=== PATIENT | female | born 1995 | race Caucasian/White ===

== ENCOUNTER 2019-01-07 13:58 | Inpatient (IN) | payer OTHER ==
[2019-01-07 14:40] VITALS: BMI 26.3
--- NOTE | 2019-01-07 14:56 | HP ---
COWS - Scale Resting Pulse: 0= [place] 80 or Below Sweatin=Flushed/Facial Moisture Restless Observation: 1= Difficult to Sit Still Pupil Size: 0= Normal to Room Light Bone or Joint Aches: 2= Severe Diffuse Aches Runny Nose/ Eye Tearin= Runny Nose/Eyes GI Upset > 30mins: 2= Nausea/Diarrhea Tremor Observation: 2= Slight Tremor Visible Yawning Observation: 2= >3x During Session Anxiety or Irritability: 2=Irritable/Anxious Goose Flesh Skin: 3=Piloerection COWS Score: 18 CIWA Score - Admission Criteria OASAS Guidelines: Admission for Medically Managed Detox: Requires at least one of the followin. CIWA greater than 12 2. Seizures within the past 24 hours 3. Delirium tremens within the past 24 hours 4. Hallucinations within the past 24 hours 5. Acute intervention needed for co occurring medical disorder 6. Acute intervention needed for co occurring psychiatric disorder 7. Severe withdrawal that cannot be handled at a lower level of care (continued vomiting, continued diarrhea, abnormal vital signs) requiring intravenous medication and/or fluids 8. Admission ROS S - HPI Chief Complaint: I want to get better. Allergies/Adverse Reactions: Allergies Allergy/AdvReac Type Severity Reaction Status Date / Time No Known Allergies Allergy Verified 01/07/19 14:33 History of Present Illness: pt is a 23yr old female with a history of heroin dependence seeking detox for treatment. Pt has been dependent on heroin for 3yrs and is requiring detox now. This is her first time in detox. Exam Limitations: No Limitations - Ebola screening Have you traveled outside of the country in the last 21 days: No Have you had contact with anyone from an Ebola affected area: No Have you been sick,other than usual withdrawal symptoms: No Do you have a fever: No - Review of Systems Constitutional: Chills, Diaphoresis, Loss of Appetite, Night Sweats, Changes in sleep EENT: reports: Tearing, Nose Congestion Respiratory: reports: No Symptoms reported Cardiac: reports: No Symptoms Reported GI: reports: Diarrhea, Nausea, Poor Appetite, Poor Fluid Intake, Vomiting, Abdominal cramping : reports: No Symptoms Reported Musculoskeletal: reports: Back Pain, Joint Pain, Muscle Pain Integumentary: reports: Flushing, Sweating Neuro: reports: Headache, Tingling, Tremors Endocrine: reports: Excessive Sweating, Flushing, Intolerance to Cold, Intolerance to Heat Hematology: reports: No Symptoms Reported Psychiatric: reports: Judgement Intact, Mood/Affect Appropiate, Orientated x3, Agitated, Anxious Other Systems: Reviewed and Negative Patient History - Patient Medical History Hx Anemia: No Hx Asthma: Yes (albuterol ) Hx Chronic Obstructive Pulmonary Disease (COPD): No Hx Cancer: No Hx Cardiac Disorders: No Hx Congestive Heart Failure: No Hx Hypertension: No Hx Hypercholesterolemia: No Hx Pacemaker: No HX Cerebrovascular Accident: No Hx Seizures: No Hx Dementia: No Hx Diabetes: No Hx Gastrointestinal Disorders: Yes (GERD) Hx Liver Disease: No Hx Genitourinary Disorders: No Hx Sexually Transmitted Disorders: No Hx Renal Disease (ESRD): No Hx Thyroid Disease: No Hx Human Immunodeficiency Virus (HIV): No (negative) Hx Hepatitis C: No (negative) Hx Depression: No Hx Suicide Attempt: No (pt denies) Hx Bipolar Disorder: No Hx Schizophrenia: No - Patient Surgical History Past Surgical History: No Anesthesia Reaction: No - PPD History Previous Implant?: Yes Documented Results: Negative w/o proof PPD to be Administered?: Yes - Reproductive History Patient is a Female of Child Bearing Age (11 -55 yrs old): Yes Last Menstrual Period: 12/28/18 Patient : No - Smoking Cessation Smoking history: Current every day smoker Have you smoked in the past 12 months: Yes Aproximately how many cigarettes per day: 2 Hx Chewing Tobacco Use: No Initiated information on smoking cessation: Yes 'Breaking Loose' booklet given: 01/07/19 - Substance & Tx. History Hx Alcohol Use: No Hx Substance Use: Yes Substance Use Type: Heroin Hx Substance Use Treatment: No - Substances abused Heroin Substance route: Smoking Frequency: Daily Amount used: 8 bags Age of first use: 19 Date of last use: 01/06/19 Family Disease History - Family Disease History Family History: Unremarkable Admission Physical Exam [facility] - Vital Signs Vital Signs: Vital Signs - 24 hr 01/07/19 14:35 Temperature 98 F Pulse Rate 80 Respiratory 18 Rate Blood Pressure 97/75 - Physical General Appearance: Yes: Appropriately Dressed, Tremorous, Irritable, Sweating, Anxious HEENTM: Yes: Normal Voice, Rhinorrhea Respiratory: Yes: Lungs Clear, No Respiratory Distress, Wheezing Neck: Yes: No masses,lesions,Nodules Breast: Yes: Within Normal Limits Cardiology: Yes: Regular Rhythm, Regular Rate, S1, S2 Abdominal: Yes: Non Tender Genitourinary: Yes: Within Normal Limits Back: Yes: Normal Inspection Musculoskeletal: Yes: full range of Motion, Back pain, Muscle Pain Extremities: Yes: Normal Capillary Refill, Non-Tender, Tremors Neurological: Yes: Fully Oriented, Alert, Normal Response Integumentary: Yes: Diaphoresis Lymphatic: Yes: Within Normal Limits - Diagnostic (1) Opioid dependence with withdrawal Current Visit: Yes Status: Chronic (2) Nicotine dependence Current Visit: Yes Status: Chronic Qualifiers: Nicotine product type: cigarettes Substance use status: uncomplicated Qualified Code(s): F17.210 - Nicotine dependence, cigarettes, uncomplicated (3) Asthma Current Visit: Yes Status: Chronic Qualifiers: Asthma severity: mild Asthma complication type: unspecified (4) GERD (gastroesophageal reflux disease) Current Visit: Yes Status: Chronic Qualifiers: Esophagitis presence: without esophagitis Qualified Code(s): K21.9 - Gastro -esophageal reflux disease without esophagitis Cleared for Admission S - Detox or Rehab [facility] Level of Care: Medically Managed Detox Regimen/Protocol: Methadone Inpatient Rehab Admission - Rehab Decision to Admit Inpatient rehab admission?: No
[2019-01-07] MEDS ORDERED: MAGNESIUM CITRATE 300 ML BOTTLE PO PRN (15:05)
[2019-01-07] MEDS ORDERED: ACETAMINOPHEN 325 MG TABLET (FP) PO PRN ×2 (15:05)
[2019-01-07] MEDS ORDERED: MENTHOL/PHENOL 1 EACH UD MM PRN (15:05)
[2019-01-07] MEDS ORDERED: MAG HYDROX/AL HYDROX/SIMETH 30 ML UNIT-DOSE CUP PO PRN (15:05)
[2019-01-07] MEDS ORDERED: BISMUTH SUBSALICYLATE 262 MG/15 ML BTL PO PRN (15:05)
[2019-01-07] MEDS ORDERED: IBUPROFEN 400 MG TABLET (FP) PO PRN (15:05)
[2019-01-07] MEDS ORDERED: MAGNESIUM HYDROX 2400MG/30ML ORAL SUSPENSION 30 ML CUP PO PRN (15:05)
[2019-01-07] MEDS ORDERED: DICYCLOMINE HCL 10 MG CAPSULE PO PRN (15:15)
[2019-01-07] MEDS ORDERED: PROCHLORPERAZINE MALEATE 5 MG TABLET PO PRN (15:15)
[2019-01-07] MEDS ORDERED: P-EPHED 60MG/TRIPROLIDI 2.5MG TABLET PO PRN (15:15)
[2019-01-07] MEDS ORDERED: ALBUTEROL SO4 2.5/IPRATROPIUM 0.5 INH SOL 3 ML VIAL.NEB. NEB PRN (15:21)
[2019-01-07] MEDS ORDERED: ALBUTEROL SO4 2.5/IPRATROPIUM 0.5 INH SOL 3 ML VIAL.NEB. NEB ONE (15:21)
[2019-01-07] MEDS ORDERED: METHADONE HCL 10 MG TABLET (FOR DETOX USE ONLY) PO ONE ×3 (15:55→23:00)
[2019-01-07 16:34] LABS: HEMATOCRIT 42.4 % (32.4-45.2); HEMOGLOBIN 14.4 GM/dL (10.7-15.3); MCH 32.4 pg (25.7-33.7); MEAN CELL VOLUME 95.4 fl (80-96); MEAN PLT VOLUME 9.2 fl (7.5-11.1); PLATELET COUNT 291 K/MM3 (134-434); RBC 4.45 M/mm3 (3.60-5.2); RDW 14.1 % (11.6-15.6); WHITE BLOOD COUNT 9.9 K/mm3 (4.0-10.0)
[2019-01-07 16:42] LABS: ALBUMIN 4.2 g/dl (3.4-5.0); ALK PHOS 54 U/L (45-117); ANION GAP 7 MMOL/L (8-16); BILIRUBIN,TOTAL 0.6 mg/dL (0.2-1); BLOOD UREA NITROGEN 8 mg/dL (7-18); CALCIUM 9.6 mg/dL (8.5-10.1); CHLORIDE 109 mmol/L (98-107); CO2 26 mmol/L (21-32); CREATININE 0.8 mg/dL (0.55-1.3); GLUCOSE,RANDOM 79 mg/dL (74-106); POTASSIUM 4.2 mmol/L (3.5-5.1); SGOT/AST 8 U/L (15-37); SGPT/ALT 13 U/L (13-61); SODIUM 142 mmol/L (136-145); TOT PROT 7.8 g/dl (6.4-8.2)
[2019-01-07] MEDS: clonazePAM 0.5 MG TABLET PO PRN (20:36)
[2019-01-07] MEDS: MELATONIN 5 MG TABLETS PO PRN (22:29)
[2019-01-07] MEDS: THIAMINE HCL 100 MG TABLET (FP) PO SCH (22:29)
[2019-01-08] MEDS: clonazePAM 0.5 MG TABLET PO PRN ×3 (05:31→18:35)
[2019-01-08] MEDS ORDERED: PNEUMOC 13-VAL CONJ-DIP CRM/PF 0.5 ML DISP.SYRIN IM ONE (08:00)
[2019-01-08] MEDS: PRENATAL VITAMINS W/ FOLIC ACID TABLET (FP) PO SCH (09:12)
[2019-01-08] MEDS: NICOTINE 7 MG/24 HOURS TOPICAL PATCH TD SCH (09:12)
[2019-01-08] MEDS ORDERED: METHADONE HCL 10 MG TABLET (FOR DETOX USE ONLY) PO ONE ×2 (10:00)
--- NOTE | 2019-01-08 10:56 | PN ---
[facility] COWS - Scale Sweatin= Chills/Flushing Restless Observation: 1= Difficult to Sit Still Pupil Size: 0= Normal to Room Light Bone or Joint Aches: 2= Severe Diffuse Aches Runny Nose/ Eye Tearin= Runny Nose/Eyes GI Upset > 30mins: 1= Stomach Cramp Tremor Observation of Outstretched Hands: 1= Tremor [place], Not Seen Yawning Observation: 0= None Anxiety or Irritability: 2=Irritable/Anxious Goose Flesh Skin: 0=Smooth Skin BHS Progress Note (SOAP) Objective: 01/08/19 10:55 Vital Signs Temperature 96.6 F L 01/08/19 06:00 Pulse Rate 87 01/08/19 06:00 Respiratory Rate 18 01/08/19 06:00 Blood Pressure 98/57 L 01/08/19 06:00 O2 Sat by Pulse Oximetry (%) Laboratory Last Values WBC 9.9 K/mm3 (4.0-10.0) 01/07/19 14:55 RBC 4.45 M/mm3 (3.60-5.2) 01/07/19 14:55 Hgb 14.4 GM/dL (10.7-15.3) 01/07/19 14:55 Hct 42.4 % (32.4-45.2) 01/07/19 14:55 MCV 95.4 fl (80-96) 01/07/19 14:55 MCH 32.4 pg (25.7-33.7) 01/07/19 14:55 MCHC 34.0 g/dl (32.0-36.0) 01/07/19 14:55 RDW 14.1 % (11.6-15.6) 01/07/19 14:55 Plt Count 291 K/MM3 (134-434) 01/07/19 14:55 MPV 9.2 fl (7.5-11.1) 01/07/19 14:55 Sodium 142 mmol/L (136-145) 01/07/19 14:55 Potassium 4.2 mmol/L (3.5-5.1) 01/07/19 14:55 Chloride 109 mmol/L (98-107) H 01/07/19 14:55 Carbon Dioxide 26 mmol/L (21-32) 01/07/19 14:55 Anion Gap 7 MMOL/L (8-16) L 01/07/19 14:55 BUN 8 mg/dL (7-18) 01/07/19 14:55 Creatinine 0.8 mg/dL (0.55-1.3) 01/07/19 14:55 Creat Clearance w eGFR 89.69 (>60) 01/07/19 14:55 Random Glucose 79 mg/dL (74-106) 01/07/19 14:55 Calcium 9.6 mg/dL (8.5-10.1) 01/07/19 14:55 Total Bilirubin 0.6 mg/dL (0.2-1) 01/07/19 14:55 AST 8 U/L (15-37) L 01/07/19 14:55 ALT 13 U/L (13-61) 01/07/19 14:55 Alkaline Phosphatase 54 U/L (45-117) 01/07/19 14:55 Total Protein 7.8 g/dl (6.4-8.2) 01/07/19 14:55 Albumin 4.2 g/dl (3.4-5.0) 01/07/19 14:55 POC Urine HCG, Qual Negative 01/07/19 15:06 RPR Titer Nonreactive (NONREACTIVE) 01/07/19 14:55 c/o interrupted sleep, chills, sweats, body aches, wheezing /chest tightness Aox3 no acute distress s1 s2 +BLL expiratory wheezing skin intact, neg cyanosis full ROM, ambulating in the unit , + back pain withdrawal sx asthma due neb prn continue detox robaxin for back pain increase PO fluids continue to monitor continue detox
[2019-01-08] MEDS ORDERED: FLU VACCINE QUAD 60 MCG/0.5 ML (MDV 18-19) IM ONE (12:00)
[2019-01-08] MEDS ORDERED: PNEUMOCOCCAL 23 VACCINE 0.5 ML VIAL IM ONE (12:00)
[2019-01-08] MEDS: ALBUTEROL SO4 8 GM HFA INHALER IH PRN ×3 (12:25→22:13)
[2019-01-08] MEDS: hydrOXYzine PAMOATE 25 MG CAPSULE (FP) PO PRN ×2 (15:51→22:13)
[2019-01-08] MEDS: NICOTINE POLACRILEX 4 MG GUM BUC PRN ×2 (15:52→18:36)
[2019-01-08] MEDS: THIAMINE HCL 100 MG TABLET (FP) PO SCH (22:11)
[2019-01-08] MEDS: MELATONIN 5 MG TABLETS PO PRN (22:14)
[2019-01-08] MEDS: cloNIDine HCL 0.1 MG TABLET PO PRN (22:14)
[2019-01-08] MEDS: BACLOFEN 10 MG TABLET (FP) PO PRN (22:14)
[2019-01-09] MEDS: clonazePAM 0.5 MG TABLET PO PRN ×4 (00:38→23:17)
[2019-01-09] MEDS ORDERED: METHADONE HCL 10 MG TABLET (FOR DETOX USE ONLY) PO ONE (10:00)
[2019-01-09] MEDS ORDERED: METHADONE HCL 5 MG TABLET (FOR DETOX USE ONLY) PO ONE (10:00)
[2019-01-09] MEDS: NICOTINE 7 MG/24 HOURS TOPICAL PATCH TD SCH (10:13)
[2019-01-09] MEDS: PRENATAL VITAMINS W/ FOLIC ACID TABLET (FP) PO SCH (10:13)
--- NOTE | 2019-01-09 14:29 | EKG ---
Test Reason : Blood Pressure : / mmHG Vent. Rate : 080 BPM Atrial Rate : 080 BPM P-R Int : 148 ms QRS Dur : 080 ms QT Int : 386 ms P-R-T Axes : 051 060 029 degrees QTc Int : 445 ms NORMAL SINUS RHYTHM WITH SINUS ARRHYTHMIA NORMAL ECG NO PREVIOUS ECGS AVAILABLE Confirmed by MD NINOSKA, ENOCH ([id number]) on 01/09/2019 2:29:02 PM Referred By: Confirmed By:ENOCH XIAO MD
--- NOTE | 2019-01-09 17:21 | PN ---
[facility] COWS - Scale Resting Pulse: 0= [place] 80 or Below Sweatin= Beads of Sweat on Face Restless Observation: 0= Sits Still Pupil Size: 0= Normal to Room Light Bone or Joint Aches: 4=Acute Joint/Muscle Pain Runny Nose/ Eye Tearin= None GI Upset > 30mins: 0= None Tremor Observation of Outstretched Hands: 0= None Yawning Observation: 1= 1-2x During Session Anxiety or Irritability: 2=Irritable/Anxious Goose Flesh Skin: 0=Smooth Skin COWS Score: 10 S Progress Note (SOAP) Subjective: sweats irritable body aches Objective: 01/09/19 17:20 Vital Signs 01/09/19 01/09/19 10:15 14:42 Temperature 97.7 F 97.9 F Pulse Rate 66 78 Respiratory 18 18 Rate Blood Pressure 103/55 L 105/62 Laboratory Last Values WBC 9.9 K/mm3 (4.0-10.0) 01/07/19 14:55 RBC 4.45 M/mm3 (3.60-5.2) 01/07/19 14:55 Hgb 14.4 GM/dL (10.7-15.3) 01/07/19 14:55 Hct 42.4 % (32.4-45.2) 01/07/19 14:55 MCV 95.4 fl (80-96) 01/07/19 14:55 MCH 32.4 pg (25.7-33.7) 01/07/19 14:55 MCHC 34.0 g/dl (32.0-36.0) 01/07/19 14:55 RDW 14.1 % (11.6-15.6) 01/07/19 14:55 Plt Count 291 K/MM3 (134-434) 01/07/19 14:55 MPV 9.2 fl (7.5-11.1) 01/07/19 14:55 Sodium 142 mmol/L (136-145) 01/07/19 14:55 Potassium 4.2 mmol/L (3.5-5.1) 01/07/19 14:55 Chloride 109 mmol/L (98-107) H 01/07/19 14:55 Carbon Dioxide 26 mmol/L (21-32) 01/07/19 14:55 Anion Gap 7 MMOL/L (8-16) L 01/07/19 14:55 BUN 8 mg/dL (7-18) 01/07/19 14:55 Creatinine 0.8 mg/dL (0.55-1.3) 01/07/19 14:55 Creat Clearance w eGFR 89.69 (>60) 01/07/19 14:55 Random Glucose 79 mg/dL (74-106) 01/07/19 14:55 Calcium 9.6 mg/dL (8.5-10.1) 01/07/19 14:55 Total Bilirubin 0.6 mg/dL (0.2-1) 01/07/19 14:55 AST 8 U/L (15-37) L 01/07/19 14:55 ALT 13 U/L (13-61) 01/07/19 14:55 Alkaline Phosphatase 54 U/L (45-117) 01/07/19 14:55 Total Protein 7.8 g/dl (6.4-8.2) 01/07/19 14:55 Albumin 4.2 g/dl (3.4-5.0) 01/07/19 14:55 POC Urine HCG, Qual Negative 01/07/19 15:06 RPR Titer Nonreactive (NONREACTIVE) 01/07/19 14:55 HIV 1&2 Antibody Screen Negative 01/08/19 07:55 HIV P24 Antigen Negative 01/08/19 07:55 Labs noted Assessment: 01/09/19 17:19 Aox3 no distress, full ROM ambulating in the unit withdrawal signs 01/09/19 17:21 Plan: Continue detox increase fluids continue to monitor
[2019-01-09] MEDS: hydrOXYzine PAMOATE 25 MG CAPSULE (FP) PO PRN (23:17)
[2019-01-09] MEDS: BACLOFEN 10 MG TABLET (FP) PO PRN (23:17)
[2019-01-09] MEDS: THIAMINE HCL 100 MG TABLET (FP) PO SCH (23:17)
[2019-01-09] MEDS: cloNIDine HCL 0.1 MG TABLET PO PRN (23:17)
[2019-01-09] MEDS: ALBUTEROL SO4 8 GM HFA INHALER IH PRN (23:19)
[2019-01-10] MEDS ORDERED: METHADONE HCL 10 MG TABLET (FOR DETOX USE ONLY) PO ONE (10:00)
[2019-01-10] MEDS: PRENATAL VITAMINS W/ FOLIC ACID TABLET (FP) PO SCH (10:31)
[2019-01-10] MEDS: NICOTINE 7 MG/24 HOURS TOPICAL PATCH TD SCH (10:32)
[2019-01-10] MEDS: clonazePAM 0.5 MG TABLET PO PRN ×2 (13:55→22:27)
[2019-01-10] MEDS: NICOTINE POLACRILEX 4 MG GUM BUC PRN (16:03)
--- NOTE | 2019-01-10 17:06 | PN ---
[facility] COWS - Scale Resting Pulse: 0= [place] 80 or Below Sweatin= No chills or Flushing Restless Observation: 0= Sits Still Pupil Size: 0= Normal to Room Light Bone or Joint Aches: 1= Mild Discomfort Runny Nose/ Eye Tearin= None GI Upset > 30mins: 1= Stomach Cramp Tremor Observation of Outstretched Hands: 0= None Yawning Observation: 0= None Anxiety or Irritability: 1=Feels Anxious/Irritable Goose Flesh Skin: 0=Smooth Skin COWS Score: 3 BHS Progress Note (SOAP) Subjective: Body aches, tremor Objective: 01/10/19 17:05 Last Vital Signs Temp Pulse Resp BP Pulse Ox 98.7 F 71 18 101/60 01/10/19 14:31 01/10/19 14:31 01/10/19 14:31 01/10/19 14:31 Laboratory Tests 01/07/19 01/07/19 01/07/19 14:55 14:55 14:55 WBC 9.9 RBC 4.45 Hgb 14.4 Hct 42.4 MCV 95.4 MCH 32.4 MCHC 34.0 RDW 14.1 Plt Count 291 MPV 9.2 Sodium 142 Potassium 4.2 Chloride 109 H Carbon Dioxide 26 Anion Gap 7 L BUN 8 Creatinine 0.8 Creat Clearance w eGFR 89.69 Random Glucose 79 Calcium 9.6 Total Bilirubin 0.6 AST 8 L ALT 13 Alkaline Phosphatase 54 Total Protein 7.8 Albumin 4.2 POC Urine HCG, Qual RPR Titer Nonreactive HIV 1&2 Antibody Screen HIV P24 Antigen 01/07/19 01/08/19 15:06 07:55 WBC RBC Hgb Hct MCV MCH MCHC RDW Plt Count MPV Sodium Potassium Chloride Carbon Dioxide Anion Gap BUN Creatinine Creat Clearance w eGFR Random Glucose Calcium Total Bilirubin AST ALT Alkaline Phosphatase Total Protein Albumin POC Urine HCG, Qual Negative RPR Titer HIV 1&2 Antibody Screen Negative HIV P24 Antigen Negative Labs reviewed Assessment: 01/10/19 17:05 Withdrawal symptoms Plan: Continue detox Encouraged PO water hydration
[2019-01-10] MEDS: hydrOXYzine PAMOATE 25 MG CAPSULE (FP) PO PRN (22:27)
[2019-01-10] MEDS: THIAMINE HCL 100 MG TABLET (FP) PO SCH (22:27)
[2019-01-10] MEDS: MELATONIN 5 MG TABLETS PO PRN (22:27)
[2019-01-10] MEDS: BACLOFEN 10 MG TABLET (FP) PO PRN (22:27)
[2019-01-11] MEDS: clonazePAM 0.5 MG TABLET PO PRN (05:27)
[2019-01-11] MEDS ORDERED: METHADONE HCL 5 MG TABLET (FOR DETOX USE ONLY) PO ONE (06:00)
[2019-01-11] MEDS: ALBUTEROL SO4 8 GM HFA INHALER IH PRN (07:51)
[2019-01-11] MEDS: NICOTINE POLACRILEX 4 MG GUM BUC PRN ×3 (10:32→20:16)
[2019-01-11] MEDS: PRENATAL VITAMINS W/ FOLIC ACID TABLET (FP) PO SCH (10:32)
[2019-01-11] MEDS: NICOTINE 7 MG/24 HOURS TOPICAL PATCH TD SCH (10:32)
[2019-01-11] MEDS: hydrOXYzine PAMOATE 25 MG CAPSULE (FP) PO PRN ×2 (10:32→20:15)
[2019-01-11] MEDS ORDERED: cloNIDine HCL 0.1 MG TABLET PO ONE (12:25)
--- NOTE | 2019-01-11 15:41 | DS ---
[facility] Detox Discharge Summary Admission Date: 01/07/19 Discharge Date: 01/11/19 - History Present History: Opioid Dependence - Physical Exam Results Vital Signs: Vital Signs Temperature 96.1 F L 01/11/19 13:47 Pulse Rate 83 01/11/19 13:47 Respiratory Rate 16 01/11/19 13:47 Blood Pressure 102/52 L 01/11/19 13:47 O2 Sat by Pulse Oximetry (%) - Treatment Hospital Course: Detox Protocol Followed, Detoxed Safely, Responded well, Discharged Condition Good, Rehab Referral Accepted - Medication Discharge Medications: Ambulatory Orders Albuterol Sulfate Inhaler - [Ventolin Hfa Inhaler -] 1 - 2 inh PO QID PRN - Diagnosis (1) Asthma Current Visit: Yes Status: Chronic Qualifiers: Asthma severity: mild Asthma complication type: unspecified (2) GERD (gastroesophageal reflux disease) Current Visit: Yes Status: Chronic Qualifiers: Esophagitis presence: without esophagitis Qualified Code(s): K21.9 - Gastro -esophageal reflux disease without esophagitis (3) Nicotine dependence Current Visit: Yes Status: Chronic Qualifiers: Nicotine product type: cigarettes Substance use status: uncomplicated Qualified Code(s): F17.210 - Nicotine dependence, cigarettes, uncomplicated (4) Opioid dependence with withdrawal Current Visit: Yes Status: Resolved - AMA Did Patient Leave Against Medical Advice: No
--- NOTE | 2019-01-11 15:43 | PN ---
[facility] Progress Note Note: PATIENT AWAITING TO BE TAKEN TO [facility]. PATIENT COMPLETED DETOX FOR MTD DETOX TODAY BUT C/O ANXIETY. PATIENT MEDICATED WITH VISTARIL WITH NO RELIEF. WILL ORDER ONE DOSE OF CLONIDINE 0.1MG ONCE AND MONITOR CLINICALLY. Laboratory Tests 01/07/19 01/07/19 01/07/19 14:55 14:55 14:55 WBC 9.9 RBC 4.45 Hgb 14.4 Hct 42.4 MCV 95.4 MCH 32.4 MCHC 34.0 RDW 14.1 Plt Count 291 MPV 9.2 Sodium 142 Potassium 4.2 Chloride 109 H Carbon Dioxide 26 Anion Gap 7 L BUN 8 Creatinine 0.8 Creat Clearance w eGFR 89.69 Random Glucose 79 Calcium 9.6 Total Bilirubin 0.6 AST 8 L ALT 13 Alkaline Phosphatase 54 Total Protein 7.8 Albumin 4.2 POC Urine HCG, Qual RPR Titer Nonreactive HIV 1&2 Antibody Screen HIV P24 Antigen 01/07/19 01/08/19 15:06 07:55 WBC RBC Hgb Hct MCV MCH MCHC RDW Plt Count MPV Sodium Potassium Chloride Carbon Dioxide Anion Gap BUN Creatinine Creat Clearance w eGFR Random Glucose Calcium Total Bilirubin AST ALT Alkaline Phosphatase Total Protein Albumin POC Urine HCG, Qual Negative RPR Titer HIV 1&2 Antibody Screen Negative HIV P24 Antigen Negative Vital Signs Period Temp Pulse Resp BP Sys/Chavez Pulse Ox Last 24 Hr 96.1 F-99.1 F 77-85 16-20 98-110/52-63
--- NOTE | 2019-01-11 18:04 | PN ---
[facility] Progress Note Note: Vital Signs Temperature 98.1 F 01/11/19 17:36 Pulse Rate 90 01/11/19 17:36 Respiratory Rate 18 01/11/19 17:36 Blood Pressure 102/59 L 01/11/19 17:36 O2 Sat by Pulse Oximetry (%) Patient to follow with rehab in AM at [facility].
[2019-01-11] MEDS: BACLOFEN 10 MG TABLET (FP) PO PRN (22:23)
[2019-01-11] MEDS: THIAMINE HCL 100 MG TABLET (FP) PO SCH (22:23)
[2019-01-11] MEDS: MELATONIN 5 MG TABLETS PO PRN (22:24)
--- NOTE | 2019-01-12 09:37 | DS ---
[facility] Detox Discharge Summary Admission Date: 01/07/19 Discharge Date: 01/12/19 - History Present History: Opioid Dependence - Physical Exam Results Vital Signs: Vital Signs Temperature 97.0 F L 01/12/19 06:43 Pulse Rate 67 01/12/19 06:43 Respiratory Rate 18 01/12/19 06:43 Blood Pressure 116/63 01/12/19 06:43 O2 Sat by Pulse Oximetry (%) - Treatment Hospital Course: Detox Protocol Followed, Detoxed Safely, Responded well, Discharged Condition Good, Rehab Referral Accepted - Medication Discharge Medications: Ambulatory Orders Albuterol Sulfate Inhaler - [Ventolin Hfa Inhaler -] 1 - 2 inh PO QID PRN - Diagnosis (1) Opioid dependence with withdrawal Current Visit: Yes Status: Chronic (2) Nicotine dependence Current Visit: Yes Status: Chronic Qualifiers: Nicotine product type: cigarettes Substance use status: uncomplicated Qualified Code(s): F17.210 - Nicotine dependence, cigarettes, uncomplicated (3) Asthma Current Visit: Yes Status: Chronic Qualifiers: Asthma severity: mild Asthma complication type: unspecified (4) GERD (gastroesophageal reflux disease) Current Visit: Yes Status: Chronic Qualifiers: Esophagitis presence: without esophagitis Qualified Code(s): K21.9 - Gastro -esophageal reflux disease without esophagitis - AMA Did Patient Leave Against Medical Advice: No (referred to inpatient rehab [facility])
[2019-01-12] MEDS: NICOTINE 7 MG/24 HOURS TOPICAL PATCH TD SCH (11:16)
[2019-01-12] MEDS: PRENATAL VITAMINS W/ FOLIC ACID TABLET (FP) PO SCH (11:17)
[2019-01-12 13:18] VITALS: BP 106/63; PULSE 83; TEMP 98.1
== END 2019-01-12 13:37 | disposition other institution (70) | DRG 773 ==
LOC: YASAS 13:58 → Y6N 15:28
PROVIDERS: ADMIT Surgery; ATTEND Surgery
PROC: HZ2ZZZZ Detoxification Services for Substance Abuse Treatment (ICD-10-PCS; principal; 2019-01-07)
DX: F11.23 Opioid dependence with withdrawal (principal); F17.210 Nicotine dependence, cigarettes, uncomplicated; J45.909 Unspecified asthma, uncomplicated; K21.9 Gastro-esophageal reflux disease without esophagitis
CPT/HCPCS: 36415; 80053; 81025; 85027; 86593; 87389; 90688; 90732; 93005; 93010; 94640; G0008; G0009; J0475; J0735

== ENCOUNTER 2019-01-12 13:31 | Inpatient (IN) | payer OTHER ==
[2019-01-12] MEDS ORDERED: IBUPROFEN 400 MG TABLET (FP) PO PRN (15:44)
[2019-01-12] MEDS ORDERED: MAGNESIUM HYDROX 2400MG/30ML ORAL SUSPENSION 30 ML CUP PO PRN (15:44)
[2019-01-12] MEDS ORDERED: MENTHOL/PHENOL 1 EACH UD MM PRN (15:44)
[2019-01-12] MEDS ORDERED: MAGNESIUM CITRATE 300 ML BOTTLE PO PRN (15:44)
[2019-01-12] MEDS ORDERED: MAG HYDROX/AL HYDROX/SIMETH 30 ML UNIT-DOSE CUP PO PRN (15:44)
[2019-01-12] MEDS ORDERED: LOPERAMIDE HCL 2 MG CAPSULE PO PRN (15:44)
[2019-01-12] MEDS ORDERED: P-EPHED 60MG/TRIPROLIDI 2.5MG TABLET PO PRN (15:44)
[2019-01-12] MEDS ORDERED: guaiFENesin 200 MG/10 ML 10 ML UNIT-DOSE CUPS PO PRN (15:44)
[2019-01-12] MEDS ORDERED: ACETAMINOPHEN 325 MG TABLET (FP) PO PRN (15:44)
--- NOTE | 2019-01-12 15:44 | HP ---
[facility] Rehab Assess/Revision - Admission History Admitted to Rehab from: [facility] Date of Admission to Rehab: 01/12/19 - Vital signs Vital Signs: Vital Signs Period Temp Pulse Resp BP Sys/Chavez Pulse Ox Last 24 Hr 97.9 F 76 18 109/72 - Findings Detox History & Physical reviewed: Yes Concur with findings: Yes Inpatient Rehab Admission - Rehab Decision to Admit Inpatient rehab admission?: Yes - Initial Determination Are CD services needed?: Yes Free of communicable disease: Yes Not in need of hospitalization: Yes - Rehab Admission Criteria Previous failed treatment: Yes Poor recovery environment: Yes Comorbidities: Yes Lacks judgement: Yes Patient is meeting Inpatient Rehab admission criteria:: Yes
[2019-01-12] MEDS: hydrOXYzine PAMOATE 50 MG CAPSULE (FP) PO PRN (18:30)
[2019-01-12] MEDS: THIAMINE HCL 100 MG TABLET (FP) PO SCH (22:09)
[2019-01-12] MEDS: NICOTINE POLACRILEX 4 MG GUM BUC PRN (22:10)
[2019-01-12] MEDS: MELATONIN 5 MG TABLETS PO PRN (22:10)
[2019-01-13] MEDS: NICOTINE POLACRILEX 4 MG GUM BUC PRN (06:42)
[2019-01-13] MEDS: NICOTINE 21 MG/24 HOURS TOPICAL PATCH TD SCH (11:05)
[2019-01-13] MEDS: PRENATAL VITAMINS W/ FOLIC ACID TABLET (FP) PO SCH (11:05)
[2019-01-13] MEDS: hydrOXYzine PAMOATE 50 MG CAPSULE (FP) PO PRN ×2 (11:07→23:11)
[2019-01-13] MEDS: NICOTINE POLACRILEX 2 MG GUM BUC PRN (11:08)
[2019-01-13] MEDS: ALBUTEROL SO4 8 GM HFA INHALER IH PRN ×2 (11:08→21:59)
[2019-01-13] MEDS ORDERED: PT OWN MED DRAWER 7, Y5N ONE (21:11)
[2019-01-13] MEDS: MELATONIN 5 MG TABLETS PO PRN (21:57)
[2019-01-13] MEDS: THIAMINE HCL 100 MG TABLET (FP) PO SCH (21:58)
[2019-01-14] MEDS: hydrOXYzine PAMOATE 50 MG CAPSULE (FP) PO PRN ×2 (10:27→22:00)
[2019-01-14] MEDS: PRENATAL VITAMINS W/ FOLIC ACID TABLET (FP) PO SCH (10:27)
[2019-01-14] MEDS: NICOTINE 21 MG/24 HOURS TOPICAL PATCH TD SCH (10:27)
[2019-01-14] MEDS: NICOTINE POLACRILEX 2 MG GUM BUC PRN ×3 (10:28→21:59)
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
[2019-01-14] MEDS: busPIRone HCL 10 MG TABLET (FP) PO SCH ×2 (12:58→21:58)
[2019-01-14] MEDS: THIAMINE HCL 100 MG TABLET (FP) PO SCH (21:58)
[2019-01-14] MEDS: ALBUTEROL SO4 8 GM HFA INHALER IH PRN (21:59)
[2019-01-14] MEDS: traZODone HCL 50 MG TABLET (FP) PO SCH (22:00)
[2019-01-15] MEDS: NICOTINE 21 MG/24 HOURS TOPICAL PATCH TD SCH (11:01)
[2019-01-15] MEDS: PRENATAL VITAMINS W/ FOLIC ACID TABLET (FP) PO SCH (11:01)
[2019-01-15] MEDS: busPIRone HCL 10 MG TABLET (FP) PO SCH ×2 (11:01→21:21)
[2019-01-15] MEDS: hydrOXYzine PAMOATE 50 MG CAPSULE (FP) PO PRN (11:02)
[2019-01-15] MEDS: ALBUTEROL SO4 8 GM HFA INHALER IH PRN (11:04)
--- NOTE | 2019-01-15 14:13 | PN ---
[facility] Progress Note Note: S:Pt c/o right hand vein pain. Pt reports that she had a blood draw 3weeks ago and since that time she has been having this pain. O:AOX3, in no respiratory distress. Vital Signs 01/15/19 10:00 Pulse Rate 97 H Respiratory 17 Rate Blood Pressure 107/72 No right hand swelling/redness noted. A:?vein swelling P: ice pack prn supportive care
[2019-01-15] MEDS: THIAMINE HCL 100 MG TABLET (FP) PO SCH (21:21)
[2019-01-15] MEDS: traZODone HCL 50 MG TABLET (FP) PO SCH (21:21)
[2019-01-15] MEDS: MELATONIN 5 MG TABLETS PO PRN (21:22)
[2019-01-15] MEDS: NICOTINE POLACRILEX 2 MG GUM BUC PRN (21:22)
[2019-01-16 07:34] VITALS: TEMP 98.1
[2019-01-16] MEDS: NICOTINE 21 MG/24 HOURS TOPICAL PATCH TD SCH (10:46)
[2019-01-16] MEDS: PRENATAL VITAMINS W/ FOLIC ACID TABLET (FP) PO SCH (10:46)
[2019-01-16] MEDS: busPIRone HCL 10 MG TABLET (FP) PO SCH ×2 (10:46→22:27)
[2019-01-16] MEDS: ALBUTEROL SO4 8 GM HFA INHALER IH PRN ×2 (10:47→22:24)
[2019-01-16] MEDS: hydrOXYzine PAMOATE 50 MG CAPSULE (FP) PO PRN (13:44)
[2019-01-16] MEDS: THIAMINE HCL 100 MG TABLET (FP) PO SCH (22:23)
[2019-01-16] MEDS: traZODone HCL 50 MG TABLET (FP) PO SCH (22:27)
[2019-01-17 07:21] VITALS: BP 102/61; PULSE 87
[2019-01-17] MEDS: busPIRone HCL 10 MG TABLET (FP) PO SCH (10:44)
[2019-01-17] MEDS: NICOTINE 21 MG/24 HOURS TOPICAL PATCH TD SCH (10:44)
[2019-01-17] MEDS: PRENATAL VITAMINS W/ FOLIC ACID TABLET (FP) PO SCH (10:44)
--- NOTE | 2019-01-17 17:08 | PN ---
[facility] Progress Note Note: patient does not want to continue treatment stated she is doing well,would like to go [place] to stay with her family and go back to school, all attempt to convince patient to stay with no avail,high risk of relapsing explained to patient and understood,advise follow up with after care program as arrangement by counselor Vital Signs Temperature 98.1 F 01/17/19 07:20 Pulse Rate 87 01/17/19 07:20 Respiratory Rate 18 01/17/19 07:20 Blood Pressure 102/61 01/17/19 07:20 O2 Sat by Pulse Oximetry (%) patient signed release ama left the unit in stable and good condition
--- NOTE | 2019-01-17 17:13 | PN ---
[facility] Progress Note Note: discharge summary for rehab date of admission 01/12/19 date of discharge 01/17/19 diagnosis opioid dependence nicotine dependence asthma gerd Vital Signs Temperature 98.1 F 01/17/19 07:20 Pulse Rate 87 01/17/19 07:20 Respiratory Rate 18 01/17/19 07:20 Blood Pressure 102/61 01/17/19 07:20 O2 Sat by Pulse Oximetry (%) patient signed release ama left the unit in stable and good condition follow up with after care program as arrangement by counselor and medical provider or to nearest emergency room for emergency problem
== END 2019-01-17 13:22 | disposition left against medical advice (07) | DRG 770 ==
LOC: YASAS 13:31 → Y3E 13:32
PROVIDERS: ADMIT Neuromusculoskeletal Medicine & OMM; ATTEND Neuromusculoskeletal Medicine & OMM
PROC: HZ42ZZZ Group Counseling for Substance Abuse Treatment, Cognitive-Behavioral (ICD-10-PCS; principal; 2019-01-12)
DX: F11.20 Opioid dependence, uncomplicated (principal); F17.210 Nicotine dependence, cigarettes, uncomplicated; F41.9 Anxiety disorder, unspecified; J45.909 Unspecified asthma, uncomplicated; K21.9 Gastro-esophageal reflux disease without esophagitis